=== PATIENT | male | born 1955 | race Caucasian/White ===

== ENCOUNTER → 2019-01-14 09:11 | Outpatient (CLI) | payer OTHER, SELFPAY ==
[2019-01-14 10:16] LABS: Add Manual Diff / Slide Review NO; Basophils Absolute Auto 0 /uL (0-100); Basophils Percent Auto 0.8 % (0-2); Eosinophils Absolute Auto 100 /uL (0-450); Eosinophils Percent Auto 2.4 % (2-4); Hematocrit 40.2 % (41-53); Hemoglobin 13.8 g/dL (13.5-17.5); Lymphocytes Absolute Auto 1300 /uL (1100-4500); Lymphocytes Percent Auto 39.3 % (25-40); Mean Corpuscular HGB Conc 34.4 % (30-36); Mean Corpuscular Hemoglobin 31.1 PG (26-34); Mean Corpuscular Volume 90.6 fL (80-100); Monocytes Absolute Auto 400 /uL (0-900); Monocytes Percent Auto 12.2 % (3-14); Neutrophils Absolute Auto 1500 /uL (1500-7000); Neutrophils Percent Auto 45.3 % (50-75); Platelet Count 203 X10^3/uL (150-400); Red Blood Cell Count 4.44 X10^6/uL (4.5-5.9); Red Cell Distribution Width 12.9 % (11.6-14.8); White Blood Cell Count 3.2 X10^3/uL (4.5-11.0)
[2019-01-14 10:31] LABS: Alanine Aminotransferase 25 IU/L (21-72); Albumin 4.3 g/dL (3.5-5.0); Albumin Globulin Ratio 1.6 (1.0-2.8); Alkaline Phosphatase 58 U/L (38-126); Aspartate Aminotransferase 21 IU/L (17-59); BUN Creatinine Ratio 26.3 (6-22); Bilirubin Total 0.6 mg/dL (0.2-1.3); Blood Urea Nitrogen 21 mg/dL (9-20); Calcium 8.8 mg/dL (8.4-10.2); Carbon Dioxide 28 mmol/L (22-32); Chloride 102 mmol/L (98-107); Cholesterol 156 mg/dL (140-199); Estimated Glomerular Filt Rate > 60.0 mL/min (>60); Globulin 2.7 g/dL (1.7-4.1); Glucose 84 mg/dL (80-110); HDL Cholesterol 69 mg/dL (40-60); HEMOLYSIS < 15 (0-50); LDL Cholesterol Calculated 80 mg/dL (<100); Potassium 4.3 mmol/L (3.4-5.1); Sodium 137 mmol/L (137-145); Triglycerides 35 mg/dL (35-150)
[2019-01-14 10:56] LABS: Prostate Specific Antigen 0.478 ng/mL (0.10-4.00)
[2019-01-14 11:12] LABS: TSH w/ Reflex to FT4 1.08 uIU/mL (0.47-4.68)
== END ==
PROVIDERS: PCP Family Medicine; Visit Provider Family Medicine
DX: E78.5 Hyperlipidemia, unspecified (principal)
CPT/HCPCS: 36415; 80053; 80061; 84153; 84443; 85025

== ENCOUNTER → 2019-07-28 08:08 | Outpatient (CLI) | payer OTHER, SELFPAY ==
[2019-07-28 08:43] LABS: Add Manual Diff / Slide Review NO; Basophils Absolute Auto 0 /uL (0-100); Basophils Percent Auto 0.6 % (0-2); Eosinophils Absolute Auto 100 /uL (0-450); Eosinophils Percent Auto 3.2 % (2-4); Hematocrit 39.7 % (41-53); Hemoglobin 14.1 g/dL (13.5-17.5); Lymphocytes Absolute Auto 1300 /uL (1100-4500); Lymphocytes Percent Auto 31.2 % (25-40); Mean Corpuscular HGB Conc 35.5 % (30-36); Mean Corpuscular Hemoglobin 31.3 PG (26-34); Mean Corpuscular Volume 88.2 fL (80-100); Monocytes Absolute Auto 500 /uL (0-900); Monocytes Percent Auto 12.9 % (3-14); Neutrophils Absolute Auto 2100 /uL (1500-7000); Neutrophils Percent Auto 52.1 % (50-75); Platelet Count 191 X10^3/uL (150-400); Red Cell Distribution Width 13.5 % (11.6-14.8)
[2019-07-28 09:18] LABS: Alanine Aminotransferase 19 IU/L (21-72); Albumin 4.5 g/dL (3.5-5.0); Albumin Globulin Ratio 1.6 (1.0-2.8); Alkaline Phosphatase 67 U/L (38-126); Aspartate Aminotransferase 27 IU/L (17-59); BUN Creatinine Ratio 22.5 (6-22); Bilirubin Total 0.9 mg/dL (0.2-1.3); Blood Urea Nitrogen 18 mg/dL (9-20); Calcium 9.7 mg/dL (8.4-10.2); Carbon Dioxide 29 mmol/L (22-32); Chloride 100 mmol/L (98-107); Cholesterol 169 mg/dL (140-199); Estimated Glomerular Filt Rate > 60.0 mL/min (>60); Globulin 2.8 g/dL (1.7-4.1); Glucose 96 mg/dL (80-110); HDL Cholesterol 77 mg/dL (40-60); HEMOLYSIS < 15 (0-50); LDL Cholesterol Calculated 83 mg/dL (<100); Potassium 5.1 mmol/L (3.4-5.1); Sodium 138 mmol/L (137-145); Total Protein 7.3 g/dL (6.3-8.2); Triglycerides 44 mg/dL (35-150)
[2019-07-28 09:47] LABS: Prostate Specific Antigen Scrn 0.693 ng/mL (0.1-4.0)
[2019-07-28 09:48] LABS: TSH w/ Reflex to FT4 1.17 uIU/mL (0.47-4.68)
== END ==
PROVIDERS: PCP Family Medicine; Visit Provider Family Medicine
DX: Z00.00 Encounter for general adult medical examination without abnormal findings (principal); Z12.5 Encounter for screening for malignant neoplasm of prostate; Z13.6 Encounter for screening for cardiovascular disorders
CPT/HCPCS: 36415; 80053; 80061; 84443; 85025; G0103

== ENCOUNTER → 2019-09-08 08:44 | Outpatient (CLI) | payer OTHER, SELFPAY ==
--- NOTE | 2019-09-08 08:46 | DI.US.S_ITS ---
PROCEDURE: US THYROID INDICATIONS: NONTOXIC THYROID NODULE TECHNIQUE: Real-time scanning was performed of the thyroid gland, with image documentation. COMPARISON: [facility], US, THYROID, 04/12/2011, 13:05. 02/25/2008 FINDINGS: Right: Thyroid lobe measures 5.7 x 1.8 x 1.7 cm, and is homogeneous in echotexture. Left: Thyroid lobe measures 5.2 x 1.8 x 2.1 cm, and is homogenous in echotexture. Isthmus: 3 mm thick. Multiple small bilateral thyroid nodules. The 3 most suspicious thyroid nodules are described. Nodule number: 2 Location: Left inferior Size: 1 x 1 x 0.9 cm. (previously 0.9 x 0.8 x 0.9 cm) Composition: Solid Echogenicity: Markedly hypoechoic Shape: wider than tall. Margins: Smooth Echogenic foci: None identified. Total points: 5 ACR TI-RADS category: 4 Nodule number: 3 Location: Left mid Size: 1.3 x 1.1 x 1 cm. (previously 0.9 x 0.7 x 1 cm). Composition: Solid Echogenicity: Isoechoic Shape: wider than tall. Margins: Smooth Echogenic foci: None Total points: 3 ACR TI-RADS category: 3 Nodule number: 5 Location: Right inferior medially Size: 1.4 x 1.2 x 1.1 cm. (previously 1.2 x 1.1 x 0.9 cm). Composition: Solid Echogenicity: Isoechoic Shape: wider than tall. Margins: Smooth Echogenic foci: None Total points: 3 ACR TI-RADS category: 3 No enlarged cervical lymph nodes. IMPRESSION: Overall similar multinodular thyroid gland. 1. Left inferior nodule #2 measuring 1 cm nodule. Not significantly changed since 2010. TI-RADS 4. Follow-up ultrasound could be considered based on clinical risk factors. 2. Other nodules are TI-RADS 3 or less and measuring less than 1.5 cm. ACR TI-RADS definitions and recommendations: TI-RADS 1 (benign): 0 points. FNA not needed. TI-RADS 2 (not suspicious): 2 points. FNA not needed. TI-RADS 3 (mildly suspicious): 3 points. * FNA if 2.5 cm or larger, follow up if 1.5 cm or larger (at 1, 3, and 5 years). TI-RADS 4 (moderately suspicious): 4-6 points. * FNA if 1.5 cm or larger, follow up if 1 cm or larger (at 1, 2, 3, and 5 years). TI-RADS 5 (highly suspicious): 7 points or more. * FNA if 1 cm or larger, follow up if 0.5 cm or larger (every year for 5 years). Dictated by: Sushant Morris M.D. on 09/08/2019 at 10:37 Approved by: Sushant Morris M.D. on 09/08/2019 at 10:57
== END ==
PROVIDERS: PCP Family Medicine; Visit Provider Family Medicine
DX: E04.2 Nontoxic multinodular goiter (principal)
CPT/HCPCS: 76536

== ENCOUNTER → 2020-08-02 07:03 | Outpatient (CLI) | payer OTHER, SELFPAY ==
[2020-08-02 09:04] LABS: Add Manual Diff / Slide Review NO; Basophils Absolute Auto 0 /uL (0-100); Basophils Percent Auto 0.5 % (0-2); Eosinophils Absolute Auto 100 /uL (0-450); Eosinophils Percent Auto 3.4 % (2-4); Hematocrit 40.7 % (41-53); Hemoglobin 14.3 g/dL (13.5-17.5); Lymphocytes Absolute Auto 1300 /uL (1100-4500); Lymphocytes Percent Auto 36.5 % (25-40); Mean Corpuscular HGB Conc 35.1 % (30-36); Mean Corpuscular Hemoglobin 31.8 PG (26-34); Mean Corpuscular Volume 90.7 fL (80-100); Monocytes Absolute Auto 400 /uL (0-900); Monocytes Percent Auto 11.8 % (3-14); Neutrophils Absolute Auto 1700 /uL (1500-7000); Neutrophils Percent Auto 47.8 % (50-75); Platelet Count 179 X10^3/uL (150-400); Red Blood Cell Count 4.49 X10^6/uL (4.5-5.9); Red Cell Distribution Width 12.7 % (11.6-14.8); White Blood Cell Count 3.6 X10^3/uL (4.5-11.0)
[2020-08-02 09:07] LABS: HEMOLYSIS < 15 (0-50)
[2020-08-02 09:19] LABS: Alanine Aminotransferase 18 IU/L (<50); Albumin 4.3 g/dL (3.5-5.0); Albumin Globulin Ratio 1.6 (1.0-2.8); Alkaline Phosphatase 60 U/L (38-126); Aspartate Aminotransferase 25 IU/L (17-59); BUN Creatinine Ratio 23.7 (6-22); Bilirubin Total 0.9 mg/dL (0.2-1.3); Blood Urea Nitrogen 18 mg/dL (9-20); Calcium 9.4 mg/dL (8.4-10.2); Carbon Dioxide 29 mmol/L (22-32); Chloride 100 mmol/L (98-107); Cholesterol 166 mg/dL (140-199); Estimated Glomerular Filt Rate > 60.0 mL/min (>60); Globulin 2.7 g/dL (1.7-4.1); Glucose 84 mg/dL (80-110); HDL Cholesterol 87 mg/dL (40-60); LDL Cholesterol Calculated 70 mg/dL (<100); Potassium 4.9 mmol/L (3.4-5.1); Sodium 137 mmol/L (137-145); Triglycerides 45 mg/dL (35-150)
[2020-08-02 09:45] LABS: Thyroid Stimulating Hormone 1.29 uIU/mL (0.47-4.68)
== END ==
PROVIDERS: PCP Family Medicine; Referring Provider Family Medicine; Visit Provider Family Medicine
DX: Z00.00 Encounter for general adult medical examination without abnormal findings (principal); E04.1 Nontoxic single thyroid nodule; N40.0 Benign prostatic hyperplasia without lower urinary tract symptoms
CPT/HCPCS: 36415; 80053; 80061; 84153; 84443; 85025

== ENCOUNTER → 2022-07-08 06:54 | Outpatient (CLI) | payer OTHER, SELFPAY ==
[2022-07-08 08:19] LABS: Add Manual Diff / Slide Review NO; Basophils Absolute Auto 0 /uL (0-100); Basophils Percent Auto 0.8 % (0-2); Eosinophils Absolute Auto 200 /uL (0-450); Eosinophils Percent Auto 4.4 % (2-4); Hematocrit 40.1 % (41-53); Lymphocytes Absolute Auto 1200 /uL (1100-4500); Lymphocytes Percent Auto 34.8 % (25-40); Mean Corpuscular HGB Conc 34.9 % (30-36); Mean Corpuscular Volume 88.8 fL (80-100); Monocytes Absolute Auto 400 /uL (0-900); Monocytes Percent Auto 12.3 % (3-14); Neutrophils Absolute Auto 1700 /uL (1500-7000); Neutrophils Percent Auto 47.7 % (50-75); Platelet Count 193 X10^3/uL (150-400); Red Blood Cell Count 4.51 X10^6/uL (4.5-5.9); Red Cell Distribution Width 13.6 % (11.6-14.8); White Blood Cell Count 3.5 X10^3/uL (4.5-11.0)
[2022-07-08 08:29] LABS: Alanine Aminotransferase 15 IU/L (<50); Albumin 4.2 g/dL (3.5-5.0); Albumin Globulin Ratio 1.4 (1.0-2.8); Alkaline Phosphatase 67 U/L (38-126); Aspartate Aminotransferase 23 IU/L (17-59); BUN Creatinine Ratio 32.1 (6-22); Bilirubin Total 0.7 mg/dL (0.2-1.3); Blood Urea Nitrogen 25 mg/dL (9-20); Carbon Dioxide 31 mmol/L (22-32); Chloride 105 mmol/L (98-107); Cholesterol 168 mg/dL (140-199); Estimated Glomerular Filt Rate > 60 mL/min (>60); Globulin 3.1 g/dL (1.7-4.1); Glucose 89 mg/dL (80-110); HDL Cholesterol 68 mg/dL (40-60); HEMOLYSIS < 15 (0-50); LDL Cholesterol Calculated 93 mg/dL (<100); Sodium 138 mmol/L (137-145); Total Protein 7.3 g/dL (6.3-8.2); Triglycerides 33 mg/dL (35-150)
[2022-07-08 08:55] LABS: Prostate Specific Antigen Scrn 0.801 ng/mL (0.1-4.0)
[2022-07-08 09:45] LABS: TSH w/ Reflex to FT4 1.02 uIU/mL (0.47-4.68)
== END ==
PROVIDERS: PCP Family Medicine; Referring Provider Family Medicine; Visit Provider Family Medicine
DX: F32.9 Major depressive disorder, single episode, unspecified (principal); N40.0 Benign prostatic hyperplasia without lower urinary tract symptoms; Z12.5 Encounter for screening for malignant neoplasm of prostate
CPT/HCPCS: 36415; 80053; 80061; 84443; 85025; G0103

== ENCOUNTER 2022-09-09 18:16 | Emergency (ER) | payer OTHER, SELFPAY ==
[2022-09-09 18:35] VITALS: BP 143/74; PULSE 103; RESP 20; TEMP 37.8; O2SAT 96
--- NOTE | 2022-09-09 18:44 | DI.RAD.S_ITS ---
PROCEDURE: XR CHEST 2V INDICATIONS: cough/fever TECHNIQUE: 2 views of the chest were acquired. COMPARISON: [facility], , CHEST 2 VIEW, 10/19/2012, 12:59. FINDINGS: Surgical changes and devices: None. Lungs and pleura: Hyperinflation compatible with COPD. Perihilar infiltrates, left greater than right, suspicious for pneumonia. Bibasilar scars and atelectasis. No pleural effusions or pneumothorax. Mediastinum: Mediastinal contours are normal. Heart size is normal. Bones and chest wall: No suspicious bony abnormalities. Soft tissues appear unremarkable. IMPRESSION: Suspect bilateral pneumonia. Dictated by: Ewa Metz M.D. on 09/09/2022 at 19:44 Approved by: Ewa Metz M.D. on 09/09/2022 at 19:46
[2022-09-09 20:31] LABS: COVID-19 CEPHEID 4-PLEX PCR Negative (Negative); Influenza A - CEPHEID Flu A NEGATIVE (NEGATIVE); Influenza B - CEPHEID Flu B NEGATIVE (NEGATIVE); Respiratory Syncytial Virus Negative (Negative)
--- NOTE | 2022-09-09 22:41 | ED.ABDPAIN ---
HPI - Abdominal Pain General Chief Complaint: Upper Respiratory Symptoms Stated Complaint: Respiratory issues Time Seen by Provider: 09/09/22 22:22 Source: patient Mode of arrival: Ambulatory Related Data Home Medications Medication Instructions Recorded Confirmed CHOLECALCIFEROL (VITAMIN D3) 1,000 iu PO Q DAY ##0 11/20/11 09/09/22 (VITAMIN D3) ASCORBIC ACID (VITAMIN C) 250 mg PO Q DAY ##0 10/19/12 09/09/22 zinc 50 mg tablet 50 mg PO DAILY 08/08/20 09/09/22 Previous Rx's Medication Instructions Recorded citalopram 10 mg tablet See Rx Instructions .Route 05/09/22 .COMPLEX #90 tabs finasteride 5 mg tablet See Rx Instructions .Route 05/09/22 .COMPLEX #90 tabs trazodone 50 mg tablet See Rx Instructions .Route 05/09/22 .COMPLEX #90 tabs nirmatrelvir 300 mg (150 mg See Rx Instructions PO .COMPLEX 06/04/22 x2)-ritonavir 100 mg tablet,dose #30 tabs pack(EUA) (Paxlovid) Allergies Allergy/AdvReac Type Severity Reaction Status Date / Time No Known Drug Allergies Allergy Verified 09/09/22 17:53 Patient History Medical History 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) Thyroid nodule Surgical History Status post tonsillectomy and adenoidectomy Social History marital status: Smoking Status: Former smoker alcohol intake: current (ON OCCASION ) substance use type: does not use Smoking Status: Former smoker Exam Initial Vital Signs Initial Vital Signs: Vital Signs Temperature 100.0 F H 09/09/22 18:35 Pulse Rate 103 H 09/09/22 18:35 Respiratory Rate 20 09/09/22 18:35 Blood Pressure 143/74 H 09/09/22 18:35 Pulse Oximetry 96 09/09/22 18:35 Oxygen Delivery Method 09/09/22 18:35 Course Orders Ordered: ED Orders 09/09/22 18:44 Chest [XR chest 2V] Stat 09/09/22 19:12 Covid-19 + FLU A/B + RSV - PCR Stat Discontinued Medications Hydromorphone HCl (Hydromorphone 1 Mg Inj) 1 mg IV NOW ONE Stop: 09/09/22 22:42 Vital Signs Vital signs: Vital Signs - 8 hr 09/09/22 18:35 Temperature 100.0 F H Pulse Rate 103 H Respiratory Rate 20 Blood Pressure 143/74 H Pulse Oximetry 96 Oxygen Delivery Method Room Air MDM - Abdominal Pain Lab Data Labs: Lab Results 09/09/22 Range/Units 19:12 SARS-CoV-2 (PCR) Negative (Negative) Influenza A (RT-PCR) Flu a negative (NEGATIVE) Influenza B (RT-PCR) Flu b negative (NEGATIVE) RSV (PCR) Negative (Negative) Discharge Plan Departure Prescriptions: No Action zinc 50 mg tablet 50 mg PO DAILY citalopram 10 mg tablet See Rx Instructions .ROUTE .COMPLEX Qty: 90 3RF Dose Instruction: TAKE 1 TABLET BY MOUTH EVERY DAY Rx Instructions: TAKE 1 TABLET BY MOUTH EVERY DAY finasteride 5 mg tablet See Rx Instructions .ROUTE .COMPLEX Qty: 90 3RF Dose Instruction: TAKE 1/2 TABLET BY MOUTH EVERY DAY Rx Instructions: TAKE 1/2 TABLET BY MOUTH EVERY DAY trazodone 50 mg tablet See Rx Instructions .ROUTE .COMPLEX Qty: 90 3RF Dose Instruction: TAKE 1 TABLET BY MOUTH EVERY NIGHT AT BEDTIME Rx Instructions: TAKE 1 TABLET BY MOUTH EVERY NIGHT AT BEDTIME CHOLECALCIFEROL (VITAMIN D3) (VITAMIN D3) 1,000 iu PO Q DAY Qty: 0 ASCORBIC ACID (VITAMIN C) 250 mg PO Q DAY Qty: 0 Paxlovid (EUA) 150 mg x 2- 100 mg tablet See Rx Instructions PO .COMPLEX Qty: 30 0RF Rx Instructions: take TWO 150 mg tablets of nirmatrelvir with ONE 100 mg tablet of ritonavir twice daily for 5 days PO/ symptoms started 06/03/22, kidney function wnl. Referrals: Ralf Suhkla MD [Primary Care Provider] -
--- NOTE | 2022-09-09 22:48 | ED_ITS ---
HPI - URI/Sore Throat General Chief Complaint: Upper Respiratory Symptoms Stated Complaint: Respiratory issues Time Seen by Provider: 09/09/22 22:22 Source: patient Mode of arrival: Ambulatory History of Present Illness HPI Narrative: Patient is a 66-year-old male who presents with hiccups ongoing for the last 3 days. He states that usually this happens when she gets some sort of respiratory infection. He says he has not been feeling well for about the last 5 days. he does have cough with low-grade temperature here in the emergency department. He feels short of breath as well. With exertion and at rest. No chest pain or palpitations. Abdominal pain nausea or vomiting. Related Data Home Medications Medication Instructions Recorded Confirmed CHOLECALCIFEROL (VITAMIN D3) 1,000 iu PO Q DAY ##0 11/20/11 09/09/22 (VITAMIN D3) ASCORBIC ACID (VITAMIN C) 250 mg PO Q DAY ##0 10/19/12 09/09/22 zinc 50 mg tablet 50 mg PO DAILY 08/08/20 09/09/22 Previous Rx's Medication Instructions Recorded citalopram 10 mg tablet See Rx Instructions .Route 05/09/22 .COMPLEX #90 tabs finasteride 5 mg tablet See Rx Instructions .Route 05/09/22 .COMPLEX #90 tabs trazodone 50 mg tablet See Rx Instructions .Route 05/09/22 .COMPLEX #90 tabs nirmatrelvir 300 mg (150 mg See Rx Instructions PO .COMPLEX 06/04/22 x2)-ritonavir 100 mg tablet,dose #30 tabs pack(EUA) (Paxlovid) amoxicillin 500 mg tablet 1,000 mg PO Q8H 5 days #30 tabs 09/10/22 doxycycline hyclate 100 mg capsule 100 mg PO BID #10 caps 09/10/22 metoclopramide HCl 10 mg tablet 10 mg PO Q6H PRN nausea and 09/10/22 (Reglan) vomiting #20 tabs Allergies Allergy/AdvReac Type Severity Reaction Status Date / Time No Known Drug Allergies Allergy Verified 09/09/22 17:53 Review of Systems Review of Systems Narrative: GENERAL: Denies chills, fatigue, malaise, fever, sweats, travel HEENT: Denies sinus pain, ear pain, sore throat, difficulty swallowing, neck pain RESPIRATORY: See HPI CARDIOVASCULAR: Denies chest pain, palpitations, orthopnea, edema GASTROINTESTINAL: Denies nausea, vomiting, abdominal pain, diarrhea, constipation, melena. : Denies dysuria, frequency, incontinence, hematuria, urinary retention, flank pain. MUSCULOSKELETAL: Denies weakness, joint pain, or bony pain SKIN: No rash, no erythema, no pruritus NEUROLOGIC: Denies weakness, dizziness, headache, numbness, change in speech, confusion PSYCHIATRIC: No concerning psychosocial issues. 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 HEENT: Head atraumatic,EOMI, pupils reactive, face symmetric, moist mucous membranes CARDIOVASCULAR: Regular rate and rhythm without murmurs, rubs or gallops. RESPIRATORY: Breath sounds equal bilaterally, no wheezes rales or rhonchi. ABDOMEN: Soft, nontender. Normoactive bowel sounds all 4 quadrants. No guarding or rebound. EXTREMITIES: Normal range of motion, no clubbing or edema. Neurovascularly intact NEUROLOGICAL: Alert and oriented x4. SKIN: Warm, dry, no laceration, no petechiae, no rashes or lesions. Scores CURB-65 Confusion: No BUN >19mg/dL (>7mmol/L): Yes Respiratory rate greater or equal to 30: Yes SBP <90mmHg or DBP less or equal to 60mmHg: No Age 65 or Older: Yes CURB-65 Total: 3 Score 0-1 Outpatient care, Score 2 Inpt vs. Obs, Score 3 or over Inpt admit with ICU for score of 4-5 Course Orders Ordered: ED Orders 09/09/22 19:12 Covid-19 + FLU A/B + RSV - PCR Stat 09/09/22 23:20 CBC Auto Diff [Complete Blood Count AUTO DIFF] Stat CMP [Comprehensive Metabolic Panel] Stat Lactate (Lactic Acid) Stat Procalcitonin Stat 09/09/22 23:35 Blood Culture Stat Discontinued Medications Hydromorphone HCl (Hydromorphone 1 Mg Inj) 1 mg IV NOW ONE Stop: 09/09/22 22:42 Last Admin: 09/09/22 23:02 Dose: Not Given Documented By: JENNIFER Sodium Chloride (Normal Saline 0.9%) 1,000 mls @ 1,000 mls/hr IV BOLUS ONE Stop: 09/09/22 23:53 Last Infusion: 09/10/22 00:23 Dose: 0 mls/hr Documented By: Admin: 09/09/22 23:19 Dose: 1,000 mls/hr Documented By: JENNIFER Ceftriaxone Sodium 2,000 mg/ (Sodium Chloride) 100 mls @ 200 mls/hr IV NOW ONE Stop: 09/10/22 00:13 Last Infusion: 09/10/22 00:32 Dose: 0 mls/hr Documented By: Admin: 09/10/22 00:22 Dose: 200 mls/hr Documented By: JENNIFER Metoclopramide HCl (Metoclopramide 10 Mg/2 Ml Inj) 10 mg IV NOW ONE Stop: 09/09/22 23:00 Last Admin: 09/09/22 23:20 Dose: 10 mg Documented By: JENNIFER Pantoprazole Sodium (Pantoprazole 40 Mg Vial) 40 mg IV NOW ONE Stop: 09/09/22 22:55 Last Admin: 09/09/22 23:20 Dose: 40 mg Documented By: JENNIFER Vital Signs Vital signs: Vital Signs - 8 hr 09/09/22 23:31 09/09/22 23:32 09/09/22 23:32 Pulse Rate 93 H 93 H Respiratory Rate 43 H 32 H Blood Pressure 129/71 Pulse Oximetry 97 97 09/10/22 00:00 09/10/22 00:00 09/10/22 00:30 Pulse Rate 94 H Respiratory Rate 36 H Blood Pressure 128/76 123/67 Pulse Oximetry 97 09/10/22 00:30 Pulse Rate 96 H Respiratory Rate 37 H Blood Pressure Pulse Oximetry 96 MDM - URI/Sore Throat Lab Data Result diagrams: 09/09/22 23:20 09/09/22 23:20 Labs: Lab Results 09/09/22 09/09/22 09/09/22 Range/Units 19:12 23:20 23:20 WBC 11.8 H (4.5-11.0) X10^3/uL RBC 4.60 (4.5-5.9) X10^6/uL Hgb 14.2 (13.5-17.5) g/dL Hct 40.7 L (41-53) % MCV 88.6 (80-100) fL MCH 30.8 (26-34) PG MCHC 34.8 (30-36) % RDW 13.7 (11.6-14.8) % Plt Count 251 (150-400) X10^3/uL Neut % (Auto) 83.5 H (50-75) % Lymph % (Auto) 3.5 L (25-40) % Winn % (Auto) 9.2 (3-14) % Eos % (Auto) 3.4 (2-4) % Baso % (Auto) 0.4 (0-2) % Neut # (Auto) 9900 H (4726-5102) /uL Lymph # (Auto) 400 L (5128-0260) /uL Winn # (Auto) 1100 H (0-900) /uL Eos # (Auto) 400 (0-450) /uL Baso # (Auto) 0 (0-100) /uL Sodium 132 L (137-145) mmol/L Potassium 4.3 (3.4-5.1) mmol/L Chloride 95 L (98-107) mmol/L Carbon Dioxide 26 (22-32) mmol/L BUN 23 H (9-20) mg/dL Creatinine 0.70 (0.66-1.25) mg/dL Estimated GFR > 60 (>60) mL/min BUN/Creatinine Ratio 32.9 H (6-22) Glucose 122 H (80-110) mg/dL Lactate (0.7-2.1) mmol/L Calcium 8.8 (8.4-10.2) mg/dL Total Bilirubin 1.0 (0.2-1.3) mg/dL AST 48 (17-59) IU/L ALT 37 (<50) IU/L Alkaline Phosphatase 102 (38-126) U/L Total Protein 8.1 (6.3-8.2) g/dL Albumin 4.2 (3.5-5.0) g/dL Globulin 3.9 (1.7-4.1) g/dL Albumin/Globulin Ratio 1.1 (1.0-2.8) Procalcitonin (<0.5) ng/mL SARS-CoV-2 (PCR) Negative (Negative) Influenza A (RT-PCR) Flu a negative (NEGATIVE) Influenza B (RT-PCR) Flu b negative (NEGATIVE) RSV (PCR) Negative (Negative) 09/09/22 09/09/22 Range/Units 23:20 23:20 WBC (4.5-11.0) X10^3/uL RBC (4.5-5.9) X10^6/uL Hgb (13.5-17.5) g/dL Hct (41-53) % MCV (80-100) fL MCH (26-34) PG MCHC (30-36) % RDW (11.6-14.8) % Plt Count (150-400) X10^3/uL Neut % (Auto) (50-75) % Lymph % (Auto) (25-40) % Winn % (Auto) (3-14) % Eos % (Auto) (2-4) % Baso % (Auto) (0-2) % Neut # (Auto) (9452-0683) /uL Lymph # (Auto) (6961-0811) /uL Winn # (Auto) (0-900) /uL Eos # (Auto) (0-450) /uL Baso # (Auto) (0-100) /uL Sodium (137-145) mmol/L Potassium (3.4-5.1) mmol/L Chloride (98-107) mmol/L Carbon Dioxide (22-32) mmol/L BUN (9-20) mg/dL Creatinine (0.66-1.25) mg/dL Estimated GFR (>60) mL/min BUN/Creatinine Ratio (6-22) Glucose (80-110) mg/dL Lactate 0.9 (0.7-2.1) mmol/L Calcium (8.4-10.2) mg/dL Total Bilirubin (0.2-1.3) mg/dL AST (17-59) IU/L ALT (<50) IU/L Alkaline Phosphatase (38-126) U/L Total Protein (6.3-8.2) g/dL Albumin (3.5-5.0) g/dL Globulin (1.7-4.1) g/dL Albumin/Globulin Ratio (1.0-2.8) Procalcitonin 0.33 (<0.5) ng/mL SARS-CoV-2 (PCR) (Negative) Influenza A (RT-PCR) (NEGATIVE) Influenza B (RT-PCR) (NEGATIVE) RSV (PCR) (Negative) Imaging Data Chest x-ray: Radiologist's Impression: XRay Report Signed Patient: Florian Jeff MR#: [id number] : 1955 Acct:[id number] Age/Sex: 66 / M Date of Service: 09/09/22 Loc: ED Accession Number: [id number] ?? Procedure: XR chest 2V Ordering Provider: Sabine Galdamez D.O. PROCEDURE:? XR CHEST 2V ? INDICATIONS:? cough/fever ? TECHNIQUE:? 2 views of the chest were acquired.? ? COMPARISON:? [facility], , CHEST 2 VIEW, 10/19/2012, 12:59. ? FINDINGS:? ? Surgical changes and devices:? None.? ? Lungs and pleura:? Hyperinflation compatible with COPD.? Perihilar infiltrates, left greater than right, suspicious for pneumonia.? Bibasilar scars and atelectasis.? No pleural effusions or pneumothorax.? ? Mediastinum:? Mediastinal contours are normal.? Heart size is normal.? ? Bones and chest wall:? No suspicious bony abnormalities.? Soft tissues appear unremarkable.? ? IMPRESSION:? Suspect bilateral pneumonia. ? ? Dictated by: Ewa Metz M.D. on 09/09/2022 at 19:44 ? ? MDM Narrative Medical decision making narrative: Patient has had hiccups and generally not feeling well for about 5 days. He is found to have bilateral pneumonia on his x-ray. He is not hypoxic mildly tachycardic given IV fluids and antibiotics. His hiccups improved he was sleeping. Overall feeling better. Will treat him with amoxicillin and doxycycline. Curb 65 score is 3 but patient overall appears well. 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 Her blood work is overall reassuring. *Continue to take medications as directed Amoxicillin 1 g 3 times a day for 5 days Doxycycline 100 mg twice a day for 5 days Reglan 10 mg 3 times a day as needed for had hiccups nausea or vomiting *Follow up with your primary care provider in 2-3 days or call [phone] *Return to ER if you should have increased shortness of breath inability to tolerate fluids or any new, worsening or concerning symptoms Prescriptions: New amoxicillin 500 mg tablet 1,000 mg PO Q8H 5 Days Qty: 30 0RF metoclopramide HCl [Reglan] 10 mg tablet 10 mg PO Q6H PRN (Reason: nausea and vomiting) Qty: 20 0RF doxycycline hyclate 100 mg capsule 100 mg PO BID Qty: 10 0RF No Action zinc 50 mg tablet 50 mg PO DAILY citalopram 10 mg tablet See Rx Instructions .ROUTE .COMPLEX Qty: 90 3RF Dose Instruction: TAKE 1 TABLET BY MOUTH EVERY DAY Rx Instructions: TAKE 1 TABLET BY MOUTH EVERY DAY finasteride 5 mg tablet See Rx Instructions .ROUTE .COMPLEX Qty: 90 3RF Dose Instruction: TAKE 1/2 TABLET BY MOUTH EVERY DAY Rx Instructions: TAKE 1/2 TABLET BY MOUTH EVERY DAY trazodone 50 mg tablet See Rx Instructions .ROUTE .COMPLEX Qty: 90 3RF Dose Instruction: TAKE 1 TABLET BY MOUTH EVERY NIGHT AT BEDTIME Rx Instructions: TAKE 1 TABLET BY MOUTH EVERY NIGHT AT BEDTIME CHOLECALCIFEROL (VITAMIN D3) (VITAMIN D3) 1,000 iu PO Q DAY Qty: 0 ASCORBIC ACID (VITAMIN C) 250 mg PO Q DAY Qty: 0 Paxlovid (EUA) 150 mg x 2- 100 mg tablet See Rx Instructions PO .COMPLEX Qty: 30 0RF Rx Instructions: take TWO 150 mg tablets of nirmatrelvir with ONE 100 mg tablet of ritonavir twice daily for 5 days PO/ symptoms started 06/03/22, kidney function wnl. Referrals: Ralf Shukla MD [Primary Care Provider] - Visit Report Forms: Patient Portal/API
[2022-09-09] MEDS: SODIUM CHLORIDE 0.9% 1,000 ML 1000 ML IV (23:19)
[2022-09-09] MEDS: METOCLOPRAMIDE 10 MG/2 ML INJ IV (23:20)
[2022-09-09] MEDS: PANTOPRAZOLE 40 MG VIAL IV (23:20)
[2022-09-09 23:31] VITALS: PULSE 93; RESP 43; O2SAT 97
[2022-09-09 23:32] VITALS: BP 129/71; PULSE 93; RESP 32; O2SAT 97
[2022-09-09 23:41] LABS: Add Manual Diff / Slide Review NO; Basophils Absolute Auto 0 /uL (0-100); Basophils Percent Auto 0.4 % (0-2); Eosinophils Absolute Auto 400 /uL (0-450); Eosinophils Percent Auto 3.4 % (2-4); Hematocrit 40.7 % (41-53); Hemoglobin 14.2 g/dL (13.5-17.5); Lymphocytes Absolute Auto 400 /uL (1100-4500); Lymphocytes Percent Auto 3.5 % (25-40); Mean Corpuscular HGB Conc 34.8 % (30-36); Mean Corpuscular Hemoglobin 30.8 PG (26-34); Mean Corpuscular Volume 88.6 fL (80-100); Monocytes Absolute Auto 1100 /uL (0-900); Monocytes Percent Auto 9.2 % (3-14); Neutrophils Absolute Auto 9900 /uL (1500-7000); Neutrophils Percent Auto 83.5 % (50-75); Platelet Count 251 X10^3/uL (150-400); Red Cell Distribution Width 13.7 % (11.6-14.8); White Blood Cell Count 11.8 X10^3/uL (4.5-11.0)
[2022-09-09 23:42] LABS: Alanine Aminotransferase 37 IU/L (<50); Albumin 4.2 g/dL (3.5-5.0); Albumin Globulin Ratio 1.1 (1.0-2.8); Alkaline Phosphatase 102 U/L (38-126); Aspartate Aminotransferase 48 IU/L (17-59); BUN Creatinine Ratio 32.9 (6-22); Blood Urea Nitrogen 23 mg/dL (9-20); Calcium 8.8 mg/dL (8.4-10.2); Carbon Dioxide 26 mmol/L (22-32); Chloride 95 mmol/L (98-107); Estimated Glomerular Filt Rate > 60 mL/min (>60); Globulin 3.9 g/dL (1.7-4.1); Glucose 122 mg/dL (80-110); HEMOLYSIS 18 (0-50); Potassium 4.3 mmol/L (3.4-5.1); Sodium 132 mmol/L (137-145); Total Protein 8.1 g/dL (6.3-8.2)
[2022-09-09 23:43] LABS: Lactate (Lactic Acid) 0.9 mmol/L (0.7-2.1)
[2022-09-09 23:59] LABS: Procalcitonin 0.33 ng/mL (<0.5)
[2022-09-10] VITALS: BP 128/76; PULSE 94; RESP 36; O2SAT 97
[2022-09-10] MEDS: cefTRIAXone 2,000 MG in SODIUM CHLORIDE 0.9% 100 ML 200 MG IV (00:22)
[2022-09-10 00:30] VITALS: BP 123/67; PULSE 96; RESP 37; O2SAT 96
== END 2022-09-10 01:03 | disposition home or self-care (01) ==
PROVIDERS: Emergency Provider Emergency Medicine; PCP Family Medicine
DX: J18.9 Pneumonia, unspecified organism (principal); R06.6 Hiccough; Z20.822 Contact with and (suspected) exposure to COVID-19
CPT/HCPCS: 0241U; 36415; 71046; 80053; 83605; 84145; 85025; 87040; 96361; 96374; 96375; 99284; C9113; J0696; J2765

== ENCOUNTER 2022-10-01 21:20 | Emergency (ER) | payer OTHER, SELFPAY ==
[2022-10-01] VITALS (9 sets, daily range): BP systolic 101–108; BP diastolic 56–62; PULSE 74–81; RESP 13–18; TEMP 36.8; O2SAT 94–96; BMI 16.9; BMI 18.5
[2022-10-01] MEDS: SODIUM CHLORIDE 0.9% 1,000 ML 1000 ML IV ×2 (21:15→23:45)
--- NOTE | 2022-10-01 21:20 | PC.NURSE ---
XR at bedside
--- NOTE | 2022-10-01 21:23 | DI.RAD.S_ITS ---
PROCEDURE: XR CHEST 1V INDICATIONS: suspected sepsis TECHNIQUE: One view of the chest was acquired. COMPARISON: [facility], CR, XR CHEST 2V, 09/09/2022, 18:59. FINDINGS: Surgical changes and devices: None. Lungs and pleura: There is hyperinflation of the lungs with flattening of the hemidiaphragms compatible with COPD. There are few indistinct opacities in the left lung base. No pleural effusions or pneumothorax. Mediastinum: Mediastinal contours appear normal. Heart size is normal. Bones and chest wall: No suspicious bony lesions. Overlying soft tissues appear unremarkable. IMPRESSION: 1. Indistinct left basilar opacities may represent consolidation/pneumonia versus atelectasis. 2. Findings compatible with COPD. Dictated by: Wolf Celestin M.D. on 10/01/2022 at 22:56 Approved by: Wolf Celestin M.D. on 10/01/2022 at 22:57
--- NOTE | 2022-10-01 21:26 | ED.GENADULT ---
HPI - General Adult General Chief complaint: Weakness Stated complaint: weakness Time Seen by Provider: 10/01/22 21:26 History of Present Illness HPI narrative: 66M nonsmoker without medical problems presents by EMS with a chief complaint of about 24 hours of generalized weakness, fever and chills. He is had some runny nose and sore throat and a dry and hacking cough but denies any shortness of breath or chest pain. He is vomited once but has persistent nausea. He denies any diarrhea, dysuria, frequency or urgency. He denies exposure to other ill persons. On arrival EMS found his blood pressure to be in the low 1 100s and upper 90s, IV was placed and fluids given Related Data Previous Rx's Medication Instructions Recorded ondansetron 4 mg disintegrating 4 mg PO TID-QID PRN nausea and 10/02/22 tablet vomiting #10 tabs oseltamivir 75 mg capsule (Tamiflu) 75 mg PO BID 5 days #10 caps 10/02/22 Allergies Allergy/AdvReac Type Severity Reaction Status Date / Time No Known Drug Allergies Allergy Verified 10/01/22 23:39 Review of Systems Review of Systems Narrative: GENERAL: See HPI HEENT: See HPI RESPIRATORY: See HPI CARDIOVASCULAR: Denies chest pain, palpitations, orthopnea, edema, GASTROINTESTINAL: See HPI : Denies dysuria, frequency, incontinence, hematuria, urinary retention. MUSCULOSKELETAL: denies weakness, joint pain, or bony pain SKIN: Denies rash, skin lesions, or other NEUROLOGIC: Denies weakness, headache, numbness, change in speech, confusion, seizures, incoordination. PSYCHIATRIC: No concerning psychosocial issues. 12 point review of systems is negative except for those stated above Patient History Social History Smoking Status: Never smoker Exam Narrative Exam Narrative: GENERAL: [66] year old patient appears stated age. Well-developed patient, in mild distress. Ill appearing, no respiratory distress HEAD: Atraumatic. Normocephalic. EYES: Pupils equal round and reactive. Extraocular motions intact. No scleral icterus. No injection or drainage. ENT: Dry mucous membranes Nose without bleeding, purulent drainage. Throat without erythema, tonsillar hypertrophy or exudate. Airway patent. NECK: Trachea midline. Non tender CARDIOVASCULAR: Regular rate and rhythm without murmurs, gallops, or rubs. RESPIRATORY: Clear to auscultation. Breath sounds equal bilaterally. No wheezes, rales, or rhonchi. GASTROINTESTINAL: Abdomen soft, non-tender, nondistended. EXTREMITIES: No edema or joint tenderness. BACK: Nontender without deformity or crepitance. No flank tenderness. NEURO: AOx3. SKIN: No rash or erythema of visible areas Initial Vital Signs Initial Vital Signs: Vital Signs Pulse Rate 81 10/01/22 21:24 Pulse Oximetry 96 10/01/22 21:24 Course Orders Ordered: ED Orders 10/01/22 21:23 XR chest 1V Stat EKG-12 Lead Stat RT Consult Eval and Treat NOW 10/01/22 21:25 Covid-19 + FLU A/B + RSV - PCR Stat 10/01/22 21:36 Complete Blood Count AUTO DIFF Stat Comprehensive Metabolic Panel Stat Lactate (Lactic Acid) Stat Lipase Stat Partial Thromboplastin Time Stat Procalcitonin Stat Prothrombin Time INR Stat 10/01/22 23:12 Blood Culture Stat Discontinued Medications Sodium Chloride (Normal Saline 0.9%) 1,000 mls @ 1,000 mls/hr IV BOLUS ONE Stop: 10/01/22 22:22 Last Infusion: 10/01/22 22:15 Dose: 0 mls/hr Documented By: Admin: 10/01/22 21:15 Dose: 1,000 mls/hr Documented By: STEPHANIE Sodium Chloride (Normal Saline 0.9%) 1,000 mls @ 1,000 mls/hr IV BOLUS ONE Stop: 10/02/22 00:33 Last Infusion: 10/02/22 00:45 Dose: 0 mls/hr Documented By: Admin: 10/01/22 23:45 Dose: 1,000 mls/hr Documented By: STEPHANIE Reevaluation(s) Reevaluation #1: Patient feeling significant improvement after above-stated therapies, he is ambulatory to the bathroom, blood pressure improved to the 110s, heart rate down into the 80s and 90s. No work of breathing Vital Signs Vital signs: Vital Signs - 8 hr 10/01/22 21:26 10/01/22 21:24 10/01/22 21:30 Temperature 98.2 F Pulse Rate 80 81 78 Respiratory Rate 18 Blood Pressure 101/56 L Pulse Oximetry 95 96 95 Oxygen Delivery Method Room Air 10/01/22 22:00 10/01/22 22:30 10/01/22 23:00 Temperature Pulse Rate 74 79 79 Respiratory Rate 13 Blood Pressure Pulse Oximetry 94 95 96 Oxygen Delivery Method 10/01/22 23:21 10/01/22 23:21 10/01/22 23:30 Temperature Pulse Rate 79 Respiratory Rate 14 Blood Pressure 106/60 101/56 L Pulse Oximetry 96 Oxygen Delivery Method 10/01/22 23:30 10/01/22 23:55 10/01/22 23:55 Temperature Pulse Rate 77 79 Respiratory Rate 13 13 Blood Pressure 108/62 Pulse Oximetry 96 96 Oxygen Delivery Method 10/02/22 00:00 10/02/22 00:00 10/02/22 00:30 Temperature Pulse Rate 81 Respiratory Rate 14 Blood Pressure 114/63 115/64 Pulse Oximetry 96 Oxygen Delivery Method 10/02/22 00:30 10/02/22 01:00 10/02/22 01:00 Temperature Pulse Rate 88 79 Respiratory Rate 13 13 Blood Pressure 97/59 L Pulse Oximetry 97 97 Oxygen Delivery Method Medical Decision Making Lab Data Result diagrams: 10/01/22 21:36 10/01/22 21:36 Labs: Lab Results 10/01/22 10/01/22 10/01/22 Range/Units 21:25 21:36 21:36 WBC 5.7 (4.5-11.0) X10^3/uL RBC 4.15 L (4.5-5.9) X10^6/uL Hgb 12.6 L (13.5-17.5) g/dL Hct 36.5 L (41-53) % MCV 88.0 (80-100) fL MCH 30.5 (26-34) PG MCHC 34.6 (30-36) % RDW 13.9 (11.6-14.8) % Plt Count 187 (150-400) X10^3/uL Neut % (Auto) 71.0 (50-75) % Lymph % (Auto) 15.1 L (25-40) % [place] % (Auto) 11.0 (3-14) % Eos % (Auto) 2.2 (2-4) % Baso % (Auto) 0.7 (0-2) % Neut # (Auto) 4000 (3680-9750) /uL Lymph # (Auto) 900 L (6881-4751) /uL [place] # (Auto) 600 (0-900) /uL Eos # (Auto) 100 (0-450) /uL Baso # (Auto) 0 (0-100) /uL PT 14.3 H (10.1-12.7) SECONDS INR 1.2 (0.9-1.3) APTT 30 (26-36) SECONDS Sodium (137-145) mmol/L Potassium (3.4-5.1) mmol/L Chloride (98-107) mmol/L Carbon Dioxide (22-32) mmol/L BUN (9-20) mg/dL Creatinine (0.66-1.25) mg/dL Estimated GFR (>60) mL/min BUN/Creatinine Ratio (6-22) Glucose (80-110) mg/dL Lactate (0.7-2.1) mmol/L Calcium (8.4-10.2) mg/dL Total Bilirubin (0.2-1.3) mg/dL AST (17-59) IU/L ALT (<50) IU/L Alkaline Phosphatase (38-126) U/L Total Protein (6.3-8.2) g/dL Albumin (3.5-5.0) g/dL Globulin (1.7-4.1) g/dL Albumin/Globulin Ratio (1.0-2.8) Lipase (23-300) U/L Procalcitonin (<0.5) ng/mL SARS-CoV-2 (PCR) Negative (Negative) Influenza A (RT-PCR) Flu a positive H (NEGATIVE) Influenza B (RT-PCR) Flu b negative (NEGATIVE) RSV (PCR) Negative (Negative) 10/01/22 10/01/22 Range/Units 21:36 21:36 WBC (4.5-11.0) X10^3/uL RBC (4.5-5.9) X10^6/uL Hgb (13.5-17.5) g/dL Hct (41-53) % MCV (80-100) fL MCH (26-34) PG MCHC (30-36) % RDW (11.6-14.8) % Plt Count (150-400) X10^3/uL Neut % (Auto) (50-75) % Lymph % (Auto) (25-40) % [place] % (Auto) (3-14) % Eos % (Auto) (2-4) % Baso % (Auto) (0-2) % Neut # (Auto) (7678-8921) /uL Lymph # (Auto) (9636-5601) /uL [place] # (Auto) (0-900) /uL Eos # (Auto) (0-450) /uL Baso # (Auto) (0-100) /uL PT (10.1-12.7) SECONDS INR (0.9-1.3) APTT (26-36) SECONDS Sodium 130 L (137-145) mmol/L Potassium 3.7 (3.4-5.1) mmol/L Chloride 99 (98-107) mmol/L Carbon Dioxide 24 (22-32) mmol/L BUN 21 H (9-20) mg/dL Creatinine 0.67 (0.66-1.25) mg/dL Estimated GFR > 60 (>60) mL/min BUN/Creatinine Ratio 31.3 H (6-22) Glucose 149 H (80-110) mg/dL Lactate 1.3 (0.7-2.1) mmol/L Calcium 8.6 (8.4-10.2) mg/dL Total Bilirubin 0.4 (0.2-1.3) mg/dL AST 35 (17-59) IU/L ALT 35 (<50) IU/L Alkaline Phosphatase 81 (38-126) U/L Total Protein 6.8 (6.3-8.2) g/dL Albumin 3.6 (3.5-5.0) g/dL Globulin 3.2 (1.7-4.1) g/dL Albumin/Globulin Ratio 1.1 (1.0-2.8) Lipase 115 (23-300) U/L Procalcitonin 0.09 (<0.5) ng/mL SARS-CoV-2 (PCR) (Negative) Influenza A (RT-PCR) (NEGATIVE) Influenza B (RT-PCR) (NEGATIVE) RSV (PCR) (Negative) Imaging Data Chest x-ray: Radiologist's Impression: Florian Jeff??66??M??1955 ? Allergy/Adv: No Known Drug Allergies (More??) Close Chest X-Ray (Signed) Wolf Celestin - 10/01/22 Launch?Image [address] [address] XRay Report Signed Patient: Florian Jeff MR#: [id number] : 1955 Acct:[id number] Age/Sex: 66 / M Date of Service: 10/01/22 Loc: ED Accession Number: [id number] ?? Procedure: XR chest 1V Ordering Provider: Romain Eason D.O. PROCEDURE:? XR CHEST 1V ? INDICATIONS:? suspected sepsis ? TECHNIQUE:? One view of the chest was acquired.? ? COMPARISON:? [facility], CR, XR CHEST 2V, 09/09/2022, 18:59. ? FINDINGS:? ? Surgical changes and devices:? None.? ? Lungs and pleura:? There is hyperinflation of the lungs with flattening of the hemidiaphragms compatible with COPD.? There are few indistinct opacities in the left lung base.? No pleural effusions or pneumothorax.? ? Mediastinum:? Mediastinal contours appear normal.? Heart size is normal.? ? Bones and chest wall:? No suspicious bony lesions.? Overlying soft tissues appear unremarkable.? ? IMPRESSION:? ? 1.? Indistinct left basilar opacities may represent consolidation/pneumonia versus atelectasis. ? 2. Findings compatible with COPD.? ? Dictated by: Wolf Celestin M.D. on 10/01/2022 at 22:56 ? ? Approved by: Wolf Celestin M.D. on 10/01/2022 at 22:57 ? Discharge Plan Departure Patient Disposition: Home Clinical Impression: Influenza A Instructions: DI for Influenza -- Adult Activity Restrictions/Additional Instructions: *You have been diagnosed with [influenza a] *What to do: *Please continue to take your regular medications as directed. [ ] New medication prescriptions sent to your pharmacy: [ ] [x] New medication written as a paper prescription [ ] No new medications given *Please follow up with your primary care provider in 2-3 days, call for an appointment. Let them know you were seen in the Emergency Department and that we ask that you be seen in follow up. We will electronically transmit a record of today's note if your PCP is in our system *If you do not have a primary care provider please contact the [facility] Resource line at [phone]. They will ask some questions about your medical history and help get you set up with a doctor in the community. *Return to Emergency Department if you should have any new, worsening or concerning symptoms, such as [fever greater than 101 F, shaking chills, worsening pain, persistent vomiting or other bothersome symptoms] Prescriptions: New oseltamivir [Tamiflu] 75 mg capsule 75 mg PO BID 5 Days Qty: 10 0RF ondansetron 4 mg tablet,disintegrating 4 mg PO TID-QID PRN (Reason: nausea and vomiting) Qty: 10 0RF Referrals: Ralf Shukla MD [Primary Care Provider] - Visit Report Forms: Patient Portal/API
--- NOTE | 2022-10-01 21:30 | PC.NURSE ---
States that he had pneumonia a few weeks ago - took all the abx - wasn't feeling well today - states that he didn't eat much and was feeling weak - tonight he felt like he had a sudden onset of vertigo and felt as though the room was spinning - states that he layed down on the ground as the only thing that makes it better is lay down - better laying on the left side - was diaphoretic on scene and states that he threw up - ?syncope as the patient does not remember some of the events - hypotension on scene - has a hx of low BP but was worse today - alert and oriented - able to answer questions appropriately - pale
[2022-10-01 21:41] LABS: Add Manual Diff / Slide Review NO; Basophils Absolute Auto 0 /uL (0-100); Basophils Percent Auto 0.7 % (0-2); Eosinophils Absolute Auto 100 /uL (0-450); Eosinophils Percent Auto 2.2 % (2-4); Hematocrit 36.5 % (41-53); Hemoglobin 12.6 g/dL (13.5-17.5); Lymphocytes Absolute Auto 900 /uL (1100-4500); Lymphocytes Percent Auto 15.1 % (25-40); Mean Corpuscular HGB Conc 34.6 % (30-36); Mean Corpuscular Hemoglobin 30.5 PG (26-34); Monocytes Absolute Auto 600 /uL (0-900); Neutrophils Absolute Auto 4000 /uL (1500-7000); Platelet Count 187 X10^3/uL (150-400); Red Blood Cell Count 4.15 X10^6/uL (4.5-5.9); Red Cell Distribution Width 13.9 % (11.6-14.8); White Blood Cell Count 5.7 X10^3/uL (4.5-11.0)
[2022-10-01 21:42] LABS: INR 1.2 (0.9-1.3); Prothrombin Time 14.3 SECONDS (10.1-12.7)
[2022-10-01 21:44] LABS: Chloride 99 mmol/L (98-107); HEMOLYSIS < 15 (0-50); PTT Partial Thromboplastin Tim 30 SECONDS (26-36)
[2022-10-01 21:46] LABS: Lactate (Lactic Acid) 1.3 mmol/L (0.7-2.1)
[2022-10-01 21:47] LABS: Alanine Aminotransferase 35 IU/L (<50); Albumin 3.6 g/dL (3.5-5.0); Albumin Globulin Ratio 1.1 (1.0-2.8); Alkaline Phosphatase 81 U/L (38-126); Aspartate Aminotransferase 35 IU/L (17-59); BUN Creatinine Ratio 31.3 (6-22); Bilirubin Total 0.4 mg/dL (0.2-1.3); Blood Urea Nitrogen 21 mg/dL (9-20); Calcium 8.6 mg/dL (8.4-10.2); Carbon Dioxide 24 mmol/L (22-32); Estimated Glomerular Filt Rate > 60 mL/min (>60); Globulin 3.2 g/dL (1.7-4.1); Glucose 149 mg/dL (80-110); Lipase 115 U/L (23-300); Potassium 3.7 mmol/L (3.4-5.1); Sodium 130 mmol/L (137-145); Total Protein 6.8 g/dL (6.3-8.2)
[2022-10-01 22:03] LABS: Procalcitonin 0.09 ng/mL (<0.5)
[2022-10-01 22:23] LABS: Influenza A - CEPHEID Flu A POSITIVE (NEGATIVE); Influenza B - CEPHEID Flu B NEGATIVE (NEGATIVE); Respiratory Syncytial Virus Negative (Negative)
[2022-10-01 22:27] LABS: COVID-19 CEPHEID 4-PLEX PCR Negative (Negative)
--- NOTE | 2022-10-01 22:30 | PC.NURSE ---
warm blankets given for comfort - able to sit up with minimal to no assistance - alert and oriented - color improving - denies dizziness at this time - states that he is feeling better
--- NOTE | 2022-10-01 22:45 | PC.NURSE ---
First set of BC's drawn from the right hand - labelled at bedside and sent to lab
--- NOTE | 2022-10-01 23:12 | PC.NURSE ---
Second set of BC's drawn at this time - labelled at bedside and sent to lab - 23ga butterfly needle used at this time to the LAC
--- NOTE | 2022-10-01 23:30 | PC.NURSE ---
Ambulatory with pulse ox - HR 96 and RA saturation 97% - no acute distress - airway patent - PWD with respirations equal and unlabored bilaterally - denies dizziness - feels better at this time
[2022-10-02] VITALS: BP 114/63; PULSE 81; RESP 14; O2SAT 96
--- NOTE | 2022-10-02 | PC.NURSE ---
Resting quietly in NAD - no needs voiced - PWD with respirations equal and unlabored bilaterally - no c/o dizziness - family at bedside
[2022-10-02 00:30] VITALS: BP 115/64; PULSE 88; RESP 13; O2SAT 97
--- NOTE | 2022-10-02 00:30 | PC.NURSE ---
No changes in pt status at this time - remains at bedside
[2022-10-02 01:00] VITALS: BP 97/59; PULSE 79; RESP 13; O2SAT 97
[2022-10-02 01:30] VITALS: BP 105/59; PULSE 82; RESP 14; O2SAT 98
== END 2022-10-02 01:39 | disposition home or self-care (01) ==
PROVIDERS: Emergency Provider Emergency Medicine; PCP Family Medicine
DX: J10.1 Influenza due to other identified influenza virus with other respiratory manifestations (principal); R11.2 Nausea with vomiting, unspecified; Z20.822 Contact with and (suspected) exposure to COVID-19
CPT/HCPCS: 0241U; 71045; 80053; 83605; 83690; 84145; 85025; 85610; 85730; 87040; 93005; 96360; 96361; 99283; 99284

== ENCOUNTER → 2024-01-30 07:15 | Outpatient (CLI) | payer OTHER, SELFPAY ==
[2024-01-30 07:43] LABS: Add Manual Diff / Slide Review NO; Basophils Absolute Auto 0 /uL (0-100); Basophils Percent Auto 0.7 % (0-2); Eosinophils Absolute Auto 100 /uL (0-450); Hematocrit 38.8 % (41-53); Hemoglobin 13.6 g/dL (13.5-17.5); Lymphocytes Absolute Auto 1300 /uL (1100-4500); Lymphocytes Percent Auto 28.3 % (25-40); Mean Corpuscular Hemoglobin 31.6 PG (26-34); Mean Corpuscular Volume 90.1 fL (80-100); Monocytes Absolute Auto 400 /uL (0-900); Monocytes Percent Auto 9.6 % (3-14); Neutrophils Absolute Auto 2600 /uL (1500-7000); Neutrophils Percent Auto 58.4 % (50-75); Platelet Count 205 X10^3/uL (150-400); Red Blood Cell Count 4.31 X10^6/uL (4.5-5.9); White Blood Cell Count 4.5 X10^3/uL (4.5-11.0)
[2024-01-30 08:20] LABS: Alanine Aminotransferase 16 IU/L (<50); Albumin 3.9 g/dL (3.5-5.0); Albumin Globulin Ratio 1.3 (1.0-2.8); Alkaline Phosphatase 56 U/L (38-126); Aspartate Aminotransferase 21 IU/L (17-59); BUN Creatinine Ratio 34.3 (6-22); Bilirubin Total 0.7 mg/dL (0.2-1.3); Blood Urea Nitrogen 23 mg/dL (9-20); Calcium 9.3 mg/dL (8.4-10.2); Carbon Dioxide 29 mmol/L (22-32); Chloride 107 mmol/L (98-107); Cholesterol 161 mg/dL (140-199); Estimated Glomerular Filt Rate > 60 mL/min (>60); Globulin 2.9 g/dL (1.7-4.1); Glucose 88 mg/dL (80-110); HDL Cholesterol 77 mg/dL (40-60); HEMOLYSIS < 15 (0-50); LDL Cholesterol Calculated 74 mg/dL (<100); Potassium 4.5 mmol/L (3.4-5.1); Sodium 138 mmol/L (137-145); Total Protein 6.8 g/dL (6.3-8.2); Triglycerides 50 mg/dL (35-150)
[2024-01-30 08:48] LABS: Prostate Specific Antigen Scrn 0.633 ng/mL (0.1-4.0)
== END ==
PROVIDERS: PCP Family Medicine; Referring Provider Family Medicine; Visit Provider Family Medicine
DX: E04.1 Nontoxic single thyroid nodule (principal); N40.0 Benign prostatic hyperplasia without lower urinary tract symptoms; Z12.5 Encounter for screening for malignant neoplasm of prostate
CPT/HCPCS: 36415; 80053; 80061; 84443; 85025; G0103

== ENCOUNTER 2024-06-11 15:02 | Day surgery (SDC) | payer OTHER, SELFPAY ==
--- NOTE | 2024-06-11 15:15 | P.HP_ITS ---
History of Present Illness History of Present Illness Date Patient Seen: 06/11/24 Time Patient Seen: 15:16 Chief complaint: Colonoscopy Narrative: 68-year-old man here for screening colonoscopy. Last colonoscopy 14 years ago normal. No family history of colon cancer. No abdominal concerns today. 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) Thyroid nodule Surgical History Status post tonsillectomy and adenoidectomy Social History marital status: Smoking Status: Never smoker alcohol intake: current (ON OCCASION ) substance use type: does not use Meds Home Medications and Allergies Home Medications Medication Instructions Recorded Confirmed Type CHOLECALCIFEROL (VITAMIN D3) 1,000 iu PO Q DAY ##0 11/20/11 06/11/24 History (VITAMIN D3) ASCORBIC ACID (VITAMIN C) 250 mg PO Q DAY ##0 10/19/12 06/11/24 History zinc 50 mg tablet 50 mg PO DAILY 08/08/20 06/11/24 History citalopram 10 mg tablet See Rx Instructions .Route 01/12/24 06/11/24 Rx .COMPLEX #90 tabs finasteride 5 mg tablet 2.5 mg (1/2 x 5 mg) PO DAILY #45 01/12/24 06/11/24 Rx tabs trazodone 50 mg tablet 50 mg PO BEDTIME #90 tabs 01/12/24 06/11/24 Rx Allergies Allergy/AdvReac Type Severity Reaction Status Date / Time No Known Drug Allergies Allergy Verified 06/11/24 15:06 Exam Narrative Exam Narrative: General adult man alert oriented no acute distress Chest nonlabored respiration Extremities warm well perfused Assessment & Plan Assessment & Plan narrative: The patient requires colorectal screening and colonoscopy is recommended. Technical details were discussed. Risks, benefits, alternatives explained. Risks including but not limited to myocardial infarction, aspiration, bleeding, pain, missed lesion, incomplete examination, need for further radiographic studies, intestinal injury, and need for major abdominal surgery were discussed. All questions were answered to their satisfaction, and they are in agreement with this plan. Time-Based Coding :: [TOTAL MINUTES] spent with patient and on the chart (including review of chart, obtaining history, exam, reviewing outside data, placing orders, documenting exam and treatment plan, and counseling patient) on [DATE].
[2024-06-11] MEDS: LACTATED RINGERS 1,000 ML 42 ML IV (15:21)
[2024-06-11 15:22] VITALS: BP 156/91; PULSE 115; RESP 16; TEMP 36.4; O2SAT 99
[2024-06-11 15:48] VITALS: BP 103/74; PULSE 87; RESP 16; TEMP 36.5; O2SAT 97
[2024-06-11 15:53] VITALS: BP 99/68; PULSE 85; RESP 16; O2SAT 97
--- NOTE | 2024-06-11 15:54 | P.OP.COLON_ITS ---
Operative Date/Time/Diagnoses Date of procedure: 06/11/24 Time of procedure: 15:55 Pre-op diagnosis: Colorectal screening Post-op diagnosis: same Procedure & Clinicians Study performed: Screening colonoscopy Same procedure as scheduled: Yes Indications: Colorectal screening Surgeon: Franko Ulloa Procedure Notes Procedure in detail: The history and physical was performed/updated and the patient is ASA class is 2. The procedure was discussed in detail with the patient. Potential risks complications including infection, bleeding, missed diagnosis, perforation, need for surgery, and were explained. Their questions were answered and informed consent was obtained. Patient was brought to the procedure room and placed standard monitoring equipment. The patient's vital signs were monitored continuously throughout the entire procedure. Prior to starting time-out was performed. The patient was placed in the left lateral recumbent position. Procedural sedation was administered by anesthesia. Examination began with a thorough inspection of the perianal area there was no evidence of fissures, fistulae, external hemorrhoids or cutaneous malignancy. The colonoscopy scope was then placed into the anal canal and was advanced to the cecum, which was identified by the ileocecal valve, the appendiceal orifice and the confluence of the taenia. The scope was then slowly withdrawn examining colon thoroughly in all directions, irrigating it of any residual stool. The scope was retroflexed within the rectum The patient tolerated the procedure well. They will be discharged once criteria are met. The prep was of good/excellent quality. The withdrawl time was 6 minutes. FINDINGS * Tortuous colon requiring scope stiffening. * Normal healthy colonic mucosa without mass polyps Specimen(s): none sent Impression: Normal colonoscopy Post-procedure Plan for aftercare: No need for further colonoscopy. Disposition: same day surgery
[2024-06-11 15:58] VITALS: BP 103/72; PULSE 87; RESP 16; O2SAT 99
[2024-06-11 16:03] VITALS: BP 112/74; PULSE 80; RESP 17; TEMP 36.6; O2SAT 99
== END 2024-06-11 16:18 | disposition home or self-care (01) ==
PROVIDERS: PCP Family Medicine; Referring Provider Surgery; Visit Provider Surgery
PROC: 0DJD8ZZ Inspection of Lower Intestinal Tract, Via Natural or Artificial Opening Endoscopic (ICD-10-PCS; CPT 45378; principal; 2024-06-11 14:45)
DX: Z12.11 Encounter for screening for malignant neoplasm of colon (principal)
CPT/HCPCS: G0121; J2704

== ENCOUNTER → 2025-03-30 07:04 | Outpatient (CLI) | payer MEDICARE, SELFPAY ==
[2025-03-30 07:35] LABS: Add Manual Diff / Slide Review NO; Basophils Absolute Auto 0 /uL (0-100); Basophils Percent Auto 0.8 % (0-2); Eosinophils Absolute Auto 100 /uL (0-450); Hematocrit 38.8 % (41-53); Hemoglobin 13.5 g/dL (13.5-17.5); Lymphocytes Absolute Auto 1400 /uL (1100-4500); Lymphocytes Percent Auto 40.3 % (25-40); Mean Corpuscular HGB Conc 34.8 % (30-36); Mean Corpuscular Hemoglobin 31.2 PG (26-34); Mean Corpuscular Volume 89.7 fL (80-100); Monocytes Absolute Auto 500 /uL (0-900); Monocytes Percent Auto 13.5 % (3-14); Neutrophils Absolute Auto 1400 /uL (1500-7000); Neutrophils Percent Auto 41.4 % (50-75); Platelet Count 197 X10^3/uL (150-400); Red Blood Cell Count 4.32 X10^6/uL (4.5-5.9); Red Cell Distribution Width 13.2 % (11.6-14.8); White Blood Cell Count 3.4 X10^3/uL (4.5-11.0)
[2025-03-30 08:00] LABS: Alanine Aminotransferase 17 IU/L (<50); Albumin 4.4 g/dL (3.5-5.0); Albumin Globulin Ratio 1.8 (1.0-2.8); Alkaline Phosphatase 57 U/L (38-126); Aspartate Aminotransferase 25 IU/L (17-59); BUN Creatinine Ratio 20.7 (6-22); Bilirubin Total 1.1 mg/dL (0.2-1.3); Blood Urea Nitrogen 17 mg/dL (9-20); Calcium 9.3 mg/dL (8.4-10.2); Carbon Dioxide 26 mmol/L (22-32); Chloride 103 mmol/L (98-107); Estimated Glomerular Filt Rate > 60 mL/min (>60); Globulin 2.5 g/dL (1.7-4.1); Glucose 92 mg/dL (70-99); HEMOLYSIS < 15 (0-50); Lipase 150 U/L (23-300); Potassium 4.2 mmol/L (3.4-5.1); Sodium 134 mmol/L (137-145); Total Protein 6.9 g/dL (6.3-8.2)
[2025-03-30 08:28] LABS: TSH w/ Reflex to FT4 1.55 uIU/mL (0.47-4.68)
[2025-03-30 08:29] LABS: Prostate Specific Antigen Scrn 0.716 ng/mL (0.1-4.0)
== END ==
PROVIDERS: PCP Family Medicine; Referring Provider Family Medicine; Visit Provider Family Medicine
DX: F32.9 Major depressive disorder, single episode, unspecified (principal); Z12.5 Encounter for screening for malignant neoplasm of prostate; N40.0 Benign prostatic hyperplasia without lower urinary tract symptoms; E04.1 Nontoxic single thyroid nodule
CPT/HCPCS: 36415; 80053; 83690; 84443; 85025; G0103